=== PATIENT | male | born 1945 | race Caucasian/White ===

== ENCOUNTER 2016-11-12 22:38 | Emergency (ER) | payer MEDICARE, BC, OTHER ==
[~2016-11-12] VITALS: Ht 165.1 cm; Wt 75.0 kg
[~2016-11-12 22:38] MED LIST: ATEN100T7 PO; ATOR20TA PO; GABA100C4 PO; GLIP5 PO; GLUC1000 PO; PRAM.25 PO
[2016-11-12 23:01] VITALS: BP 209/104; PULSE 76; RESP 16; TEMP 97.8; O2SAT 98
--- NOTE | 2016-11-12 23:08 | PD ---
HPI Chief Complaint: Psychiatric Symptoms Time Seen by Provider: 22:53 Travel History International Travel<30 days: No Contact w/Intl Traveler<30days: No Traveled to known affect area: No History of Present Illness HPI This is a 8-year-old gentleman with a history of hypertension, diabetes mellitus , dementia, seizure disorder, who is brought in under a Scales act by the police after he was found wandering outside of his assisted living facility. Patient states he has no complaints at this time other than wanting to find a place to live other than the place she is at now. The patient does state that he has a bad memory and thought he was at [facility]. He is cooperative and noncombative. PFSH Past Medical History Asthma: Yes Blood Disorders: No Heart Rhythm Problems: No Cancer: No Cardiac Catheterization: Yes Cardiovascular Problems: Yes High Cholesterol: Yes Congestive Heart Failure: No COPD: Yes Coronary Artery Disease: Yes Diabetes: Yes Diminished Hearing: No Endocrine: Yes Gastrointestinal Disorders: Yes Genitourinary: No Hypertension: Yes Immune Disorder: No Implanted Vascular Access Dvce: No Insomnia: Yes Musculoskeletal: No Neurologic: Yes (RLS) Parkinson's Disease: Yes Psychiatric: No Reproductive: No Respiratory: Yes Myocardial Infarction: Yes Sleep Apnea: Yes (WEARS O2 AT NIGHT) PNEUMOCCOCAL Vaccine (Year): 1 Past Surgical History Abdominal Surgery: Yes (APPENDECTOMY 1959) Appendectomy: Yes (1959) Cardiac Surgery: Yes Coronary Artery Bypass Graft: Yes ( X 3) Other Surgery: Yes (LYMPH NODE BIOPSY NECK) Social History Alcohol Use: Yes (occ) Tobacco Use: No Substance Use: No Allergies-Medications (Allergen,Severity, Reaction): Coded Allergies: Penicillin (Verified Allergy, Severe, HIVES, 11/12/16) Reported Meds & Prescriptions Reported Meds & Active Scripts Active Reported Super B-Complex (B-Complex W/Biotin & Folic Acid) 1 Cap 1 Cap PO Pramipexole (Pramipexole Dihydrochloride) 1 Mg Tab 1 Mg PO BID Nitrostat SL (Nitroglycerin) 0.4 Mg Subl 0.4 Mg SL DIRECTED PRN 1 tablet under the tongue as needed for chest pain. Repeat every 5 minutes for a total of 3 DOSES or call 911 if NO relief. Metformin (Metformin HCl) 1,000 Mg Tab 1,000 Mg PO BIDPC With meals Lorazepam 1 Mg Tab 1 Mg PO DAILY PRN Levetiracetam 500 Mg Tab 500 Mg PO BID Glipizide 5 Mg Tab 5 Mg PO BIDAC Take 30 minutes before a meal Gabapentin 300 Mg Cap 300 Mg PO BID Donepezil 5 Mg Tab 5 Mg PO HS Plavix (Clopidogrel Bisulfate) 75 Mg Tab 75 Mg PO DAILY Calcium 600 with Vitamin D (Calcium Carbonate-Cholecalciferol) 600-400 mg-Unit Tab 1 Tab PO DAILY Atorvastatin (Atorvastatin Calcium) 40 Mg Tab 40 Mg PO HS Atenolol 100 Mg Tab 100 Mg PO BID Aspirin Low Dose (Aspirin) 81 Mg Chew 81 Mg CHEW DAILY Review of Systems ROS Limitations: Clinical Condition, Altered Mental Status (dementia) Except as stated in HPI: all other systems reviewed are Neg HENT: No: Headaches, Neck Pain Cardiovascular: No: Chest Pain or Discomfort, Palpitations Respiratory: No: Cough, Shortness of Breath Gastrointestinal: No: Nausea, Vomiting, Abdominal Pain Musculoskeletal: No: Weakness, Pain Neurologic: No: Weakness, Headache Psychiatric: No: Suicidal Ideations, Homicidal Ideation Physical Exam Narrative GENERAL: Well-nourished, well-developed patient. SKIN: Focused skin assessment warm/dry. HEAD: Normocephalic/atraumatic. EYES: No scleral icterus. No injection or drainage. NECK: Supple, trachea midline. CARDIOVASCULAR: Regular rate and rhythm without murmurs, gallops, or rubs. RESPIRATORY: Breath sounds equal bilaterally. No accessory muscle use. GASTROINTESTINAL: Abdomen soft, non-tender, nondistended. MUSCULOSKELETAL: No cyanosis, or edema. No deformities noted. NEUROLOGICAL: Awake and confused but answers questions relating to his health. Cranial nerves II through XII intact. Motor grossly within normal limits. Five out of 5 muscle strength in all muscle groups. Normal speech. Data Data Last Documented VS Vital Signs Date Time Temp Pulse Resp B/P Pulse Ox O2 Delivery O2 Flow Rate FiO2 11/12/16 23:05 16 11/12/16 23:01 97.8 76 209/104 98 Orders Complete Blood Count With Diff (11/12/16 23:03) Comprehensive Metabolic Panel (11/12/16 23:03) Psych Screen (11/12/16 23:03) Drug Screen, Random Urine (11/12/16 23:03) Gabapentin (Neurontin) (11/13/16 00:00) Lorazepam (Ativan) (11/13/16 00:00) Labs Laboratory Tests Test 11/12/16 23:25 White Blood Count 6.7 TH/MM3 Red Blood Count 4.17 MIL/MM3 Hemoglobin 13.0 GM/DL Hematocrit 37.6 % Mean Corpuscular Volume 90.3 FL Mean Corpuscular Hemoglobin 31.3 PG Mean Corpuscular Hemoglobin 34.7 % Concent Red Cell Distribution Width 13.9 % Platelet Count 139 TH/MM3 Mean Platelet Volume 9.1 FL Neutrophils (%) (Auto) 66.1 % Lymphocytes (%) (Auto) 22.6 % Monocytes (%) (Auto) 8.8 % Eosinophils (%) (Auto) 2.1 % Basophils (%) (Auto) 0.4 % Neutrophils # (Auto) 4.4 TH/MM3 Lymphocytes # (Auto) 1.5 TH/MM3 Monocytes # (Auto) 0.6 TH/MM3 Eosinophils # (Auto) 0.1 TH/MM3 Basophils # (Auto) 0.0 TH/MM3 CBC Comment DIFF FINAL Differential Comment Sodium Level 143 MEQ/L Potassium Level 4.0 MEQ/L Chloride Level 105 MEQ/L Carbon Dioxide Level 28.5 MEQ/L Anion Gap 10 MEQ/L Blood Urea Nitrogen 14 MG/DL Creatinine 1.02 MG/DL Estimat Glomerular Filtration 72 ML/MIN Rate Random Glucose 152 MG/DL Calcium Level 9.5 MG/DL Total Bilirubin 0.5 MG/DL Aspartate Amino Transf 21 U/L (AST/SGOT) Alanine Aminotransferase 26 U/L (ALT/SGPT) Alkaline Phosphatase 101 U/L Total Protein 7.4 GM/DL Albumin 4.0 GM/DL [facility] Medical Decision Making Medical Screen Exam Complete: Yes Emergency Medical Condition: Yes Medical Record Reviewed: Yes Differential Diagnosis Worsening dementia versus metabolic derangement versus infection Narrative Course 71-year-old history of dementia is brought in after he left his nursing facility. The patient was found wandering about. The patient is a very poor historian. He has obvious dementia and is difficult to get a good clear history. He states he takes nitroglycerin daily. When asked why he does that, he states because he has chest pain daily in its for his angina. When I examined the patient he stated he had no chest pain or chest pressure. There are no other complaints time my examination. The patient is been given one dose of Ativan and gabapentin. He'll be medically cleared for psychiatric admission. Diagnosis Primary Impression: Dementia Additional Impression: medically clear Harish Taylor MD Nov 12, 2016 23:08
[2016-11-12] MEDS ORDERED: ATOR40TA16 PO (23:11)
[2016-11-12] MEDS ORDERED: METF1000 PO (23:11)
[2016-11-12] MEDS ORDERED: ATEN100T PO (23:11)
[2016-11-12] MEDS ORDERED: ASPI81CH37 CHEW (23:11)
[2016-11-12] MEDS ORDERED: B-COCAP9 PO (23:11)
[2016-11-12] MEDS ORDERED: LORA1TAB12 PO (23:11)
[2016-11-12] MEDS ORDERED: LEVE500T8 PO (23:11)
[2016-11-12] MEDS ORDERED: NITR0.4S SL (23:11)
[2016-11-12] MEDS ORDERED: DONE5TAB7 PO (23:11)
[2016-11-12] MEDS ORDERED: GABA300C5 PO (23:11)
[2016-11-12] MEDS ORDERED: GLIP5TAB8 PO (23:11)
[2016-11-12] MEDS ORDERED: PRAM1TAB PO (23:11)
[2016-11-12] MEDS ORDERED: PLAV75TA29 PO (23:11)
[2016-11-12] MEDS ORDERED: CALC1TAB87 PO (23:11)
[2016-11-12 23:37] LABS: AUTOMATED NEUTROPHIL # 4.4 TH/MM3 (1.8-7.7); BASOPHIL % 0.4 % (0.0-2.0); EOSINOPHIL # 0.1 TH/MM3 (0-0.4); EOSINOPHIL % 2.1 % (0.0-4.0); HEMATOCRIT 37.6 % (39.0-51.0); HEMO FLAGS DIFF FINAL; LYMPH % 22.6 % (9.0-44.0); LYMPHOCYTE # 1.5 TH/MM3 (1.0-4.8); MEAN CELL VOLUME 90.3 FL (80.0-100.0); MEAN CORPUSCULAR HEMOGLOBIN 31.3 PG (27.0-34.0); MEAN CORPUSCULAR HGB CONC 34.7 % (32.0-36.0); MONO % 8.8 % (0.0-8.0); NEUT % 66.1 % (16.0-70.0); PLATELET COUNT 139 TH/MM3 (150-450); RED BLOOD COUNT 4.17 MIL/MM3 (4.50-5.90); RED CELL DISTRIBUTION WIDTH 13.9 % (11.6-17.2); WHITE BLOOD COUNT 6.7 TH/MM3 (4.0-11.0)
[2016-11-12 23:59] LABS: ALT (GPT) 26 U/L (12-78); ANION GAP 10 MEQ/L (5-15); AST (GOT) 21 U/L (15-37); BICARBONATE 28.5 MEQ/L (21.0-32.0); BLOOD UREA NITROGEN 14 MG/DL (7-18); CHLORIDE 105 MEQ/L (98-107); GLOMERULAR FILTRATION RATE 72 ML/MIN (>89); SODIUM (NA) 143 MEQ/L (136-145)
[2016-11-13] MEDS ORDERED: LORazepam 1 MG TAB PO ONE
[2016-11-13] MEDS ORDERED: GABAPENTIN 300 MG CAP PO ONE
[2016-11-13 00:01] LABS: ALKALINE PHOSPHATASE 101 U/L (45-117); TOTAL BILIRUBIN ADULT 0.5 MG/DL (0.2-1.0)
[2016-11-13 01:53] VITALS: BP 145/71
[2016-11-13] MEDS: GABAPENTIN 300 MG CAP PO SCH ×2 (09:15→21:19)
[2016-11-13] MEDS: CLOPIDOGREL 75 MG TAB PO SCH (09:15)
[2016-11-13] MEDS: metFORMIN HCL 500 MG TAB PO SCH ×2 (09:15→18:15)
[2016-11-13] MEDS: PRAMIPEXOLE DIHYDROCHLORIDE 1 MG TAB PO SCH ×2 (09:15→21:19)
[2016-11-13] MEDS: ATENOLOL 100 MG TAB PO SCH ×2 (09:15→21:19)
[2016-11-13] MEDS: levETIRAcetam 500 MG TAB PO SCH ×2 (09:15→21:19)
[2016-11-13 11:20] VITALS: BP 156/72; PULSE 80; RESP 18; O2SAT 98
--- NOTE | 2016-11-13 12:28 | PD ---
History of Present Illness Chief Complaint: Psychiatric Symptoms Time Seen by Provider: 11:30 Travel History International Travel<30 Days: No Contact w/Intl Traveler<30days: No Known affected area: No Legal Status Legal Status: Scales Act Scales Act Signed By: Polo Carpio History of Present Illness: History of Present Illness HPI This is a 71 -year-old gentleman with a history of dementia who is brought in under a Scales act by the police after he was found wandering outside of his assisted living facility. As per the report he left the [facility] after he was mandated to stay on campus. He left the facility and began walking home to [place]. Patient states he has no complaints at this time other than wanting to find a place to live other than the place he is at now as he feels that he has not received the care he was expecting to receive. Patient has been monitored in J pod. He has not had any behavioral concerns and has not exhibited any wandering or elopement behaviors. He is alert, oriented. States it is November 19, 2016. Patient engages well with staff and answers questions appropriately. There is no indication that he is experiencing any hallucinations, no delusions and no paranoia. There is no suicidal or homicidal ideation. When asked why he left the [facility] he states " I was not happy with the care I thought I was going to receive. I have some concerns regarding my respiratory status as well as pain in my arm." I ask him what could happen if he were to leave the [facility] and he states " I could get into an accident or have a seizure". T. C to [facility] at [phone] x 2. I spoke with Marichuy. She reports that he has been walking to [facility] during the day. On the day that he was placed under the BA he wanted to leave the facility to go to [facility] at night and became threatening to leave and threw the walker and became belligerent with staff. She states that they are not willing to take him back there as he is an elopement risk. I have advised her that the BA has been lifted and that he is not appropriate for inpatient psychiatry therefore it would be up to them to arrange for a transfer to another facility. She states that she will get back to me later in the afternoon. In the meantime I spoke with Mr. Torres and advised him that [facility] would not accept him and that I was informed by Marichuy that he had refused another placement offered to him because it entailed that he would have to share a room with someone. Patient had declined this offer as per Marichuy. At this time the patient is accepting to go back to [facility] or to the other facility. I called Marichuy but she was not available. message left with punchboard inserter. I received a call from Marichuy at 1600 hours. States she never received a c message from her punchboard inserter and then later states that she had called the wrong number. I advised her that the patient has been cleared for discharge. She informs me she will call [facility] to arrange for a transfer to that facility. Once again I have advised her that the BA has been lifted . PFSH Past Medical History Asthma: Yes Blood Disorders: No Heart Rhythm Problems: No Cancer: No Cardiac Catheterization: Yes Cardiovascular Problems: Yes High Cholesterol: Yes Congestive Heart Failure: No COPD: Yes Coronary Artery Disease: Yes Diabetes: Yes Patient Takes Glucophage: No Diminished Hearing: No Endocrine: Yes Gastrointestinal Disorders: Yes Genitourinary: No Hypertension: Yes Immune Disorder: No Implanted Vascular Access Dvce: No Insomnia: Yes Musculoskeletal: No Neurologic: Yes (RLS) Parkinson's Disease: Yes Psychiatric: No Reproductive: No Respiratory: Yes Myocardial Infarction: Yes Sleep Apnea: Yes (WEARS O2 AT NIGHT) Tetanus Vaccination: Unknown Influenza Vaccination: Yes PNEUMOCCOCAL Vaccine (Year): 1 Past Surgical History Abdominal Surgery: Yes (APPENDECTOMY 1959) Appendectomy: Yes (1959) Cardiac Surgery: Yes Coronary Artery Bypass Graft: Yes ( X 3) Other Surgery: Yes (LYMPH NODE BIOPSY NECK) Psychiatric History Psychiatric History Hx Psychiatric Treatment: PATIENT REPORTS THAT HE IS UNSURE OF HIS PSYCHIATRIC HISTORY. NONE NOTED PER PAPERWORK PROVIDED BY [facility]. History of Inpatient Treatment: No Guns or firearms in home: No Social History Born in [place]. x 3. Currently x 12 years. 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 Hx Alcohol Use: Yes (occ) Hx Tobacco Use: No Hx Substance Use: No Hx of Substance Use Treatment: No Allergies-Medications (Allergen,Severity, Reaction): Coded Allergies: Penicillin (Verified Allergy, Severe, HIVES, 11/12/16) Reported Meds & Prescriptions Reported Meds & Active Scripts Active Reported Super B-Complex (B-Complex W/Biotin & Folic Acid) 1 Cap 1 Cap PO Pramipexole (Pramipexole Dihydrochloride) 1 Mg Tab 1 Mg PO BID Nitrostat SL (Nitroglycerin) 0.4 Mg Subl 0.4 Mg SL DIRECTED PRN 1 tablet under the tongue as needed for chest pain. Repeat every 5 minutes for a total of 3 DOSES or call 911 if NO relief. Metformin (Metformin HCl) 1,000 Mg Tab 1,000 Mg PO BIDPC With meals Lorazepam 1 Mg Tab 1 Mg PO DAILY PRN Levetiracetam 500 Mg Tab 500 Mg PO BID Glipizide 5 Mg Tab 5 Mg PO BIDAC Take 30 minutes before a meal Gabapentin 300 Mg Cap 300 Mg PO BID Donepezil 5 Mg Tab 5 Mg PO HS Plavix (Clopidogrel Bisulfate) 75 Mg Tab 75 Mg PO DAILY Calcium 600 with Vitamin D (Calcium Carbonate-Cholecalciferol) 600-400 mg-Unit Tab 1 Tab PO DAILY Atorvastatin (Atorvastatin Calcium) 40 Mg Tab 40 Mg PO HS Atenolol 100 Mg Tab 100 Mg PO BID Aspirin Low Dose (Aspirin) 81 Mg Chew 81 Mg CHEW DAILY Review of Systems Constitutional: DENIES: Diaphoretic episodes, Fatigue, Fever, Weight gain, Weight loss, Chills, Dizziness, Change in appetite, Night Sweats Endocrine: DENIES: Heat/cold intolerance, Polydipsia, Polyuria, Polyphagia Eyes: COMPLAINS OF: Vision loss Ears, nose, mouth, throat: DENIES: Tinnitus, Hearing loss, Vertigo, Nasal discharge, Oral lesions, Throat pain, Hoarseness, Ear Pain, Running Nose, Epistaxis, Sinus Pain, Toothache, Odynophagia Respiratory: COMPLAINS OF: Shortness of breath Cardiovascular: DENIES: Chest pain, Palpitations, Syncope, Dyspnea on Exertion , PND, Lower Extremity Edema, Orthopnea, Claudication Gastrointestinal: DENIES: Abdominal pain, Black stools, Bloody stools, Constipation, Diarrhea, Nausea, Vomiting, Difficulty Swallowing, Anorexia Genitourinary: DENIES: Sexual dysfunction, Urinary frequency, Urinary incontinence, Urgency, Hematuria, Dysuria, Nocturia, Penile Discharge, Testicular Pain, Testicular Swelling Musculoskeletal: COMPLAINS OF: Muscle aches Integumentary: DENIES: Abnormal pigmentation, Nail changes, Pruritus, Rash Hematologic/lymphatic: DENIES: Bruising, Lymphadenopathy Immunologic/allergic: DENIES: Eczema, Urticaria Neurologic: DENIES: Abnormal gait, Headache, Localized weakness, Paresthesias, Seizures, Speech Problems, Tremor, Poor Balance Exam Alert: Yes Webb: Person (yes), Place (yes), Date (November 19, 2016) Mood: Calm Affect: Appropriate Speech: Clear, Logical Eye Contact: Normal Memory Intact: Comment (minor memory impairmetn) Hallucinations: Other (negative) Delusions: No Suicidal: Ideation (deneis any) Homicidal: Ideation (deneis any) Insight/Judgement Fair. Not impaired. MDM Medical Decision Making Medical Record Reviewed: Yes Assessment/Plan 71 year old male with history of dementia who is under a BA after he alledgedly walked out of his [facility]. At this time this patient does not present any criteria to be retained here under a BA. I have called the [facility] and they are refusing to accept him back at their facility. I have advised them that this patient does not meet criteria to remain here. Orders Complete Blood Count With Diff (11/12/16 23:03) Comprehensive Metabolic Panel (11/12/16 23:03) Psych Screen (11/12/16 23:03) Drug Screen, Random Urine (11/12/16 23:03) Gabapentin (Neurontin) (11/13/16 00:00) Lorazepam (Ativan) (11/13/16 00:00) Diet Diabetic (11/13/16 Breakfast) Atenolol (Tenormin) (11/13/16 09:00) Clopidogrel (Plavix) (11/13/16 09:00) Gabapentin (Neurontin) (11/13/16 09:00) Levetiracetam (Keppra) (11/13/16 09:00) Metformin (Glucophage) (11/13/16 09:00) Pramipexole (Mirapex) (11/13/16 09:00) Diet 1800 Ada Cons Carb (11/13/16 Lunch) Results Vital Signs Date Time Temp Pulse Resp B/P Pulse Ox O2 Delivery O2 Flow Rate FiO2 11/13/16 11:20 80 18 156/72 98 Room Air 11/13/16 01:53 85 16 145/71 97 11/12/16 23:05 16 11/12/16 23:01 97.8 76 16 209/104 98 Laboratory Tests Test 11/12/16 23:25 White Blood Count 6.7 Red Blood Count 4.17 Hemoglobin 13.0 Hematocrit 37.6 Mean Corpuscular Volume 90.3 Mean Corpuscular Hemoglobin 31.3 Mean Corpuscular Hemoglobin 34.7 Concent Red Cell Distribution Width 13.9 Platelet Count 139 Mean Platelet Volume 9.1 Neutrophils (%) (Auto) 66.1 Lymphocytes (%) (Auto) 22.6 Monocytes (%) (Auto) 8.8 Eosinophils (%) (Auto) 2.1 Basophils (%) (Auto) 0.4 Neutrophils # (Auto) 4.4 Lymphocytes # (Auto) 1.5 Monocytes # (Auto) 0.6 Eosinophils # (Auto) 0.1 Basophils # (Auto) 0.0 CBC Comment DIFF FINAL Differential Comment Sodium Level 143 Potassium Level 4.0 Chloride Level 105 Carbon Dioxide Level 28.5 Anion Gap 10 Blood Urea Nitrogen 14 Creatinine 1.02 Estimat Glomerular Filtration 72 Rate Random Glucose 152 Calcium Level 9.5 Total Bilirubin 0.5 Aspartate Amino Transf 21 (AST/SGOT) Alanine Aminotransferase 26 (ALT/SGPT) Alkaline Phosphatase 101 Total Protein 7.4 Albumin 4.0 Diagnosis Primary Impression: Dementia Additional Impression: medically clear Psychiatrically Cleared: Yes Problem Qualifiers Primary Impression: Dementia Qualified Code: F03.90 - Dementia without behavioral disturbance, unspecified dementia type Nelly Ivy Nov 13, 2016 12:28
[2016-11-13 15:23] VITALS: BP 172/80; PULSE 77; RESP 19; TEMP 96.9; O2SAT 100
[2016-11-13 18:58] VITALS: BP 141/65; PULSE 74; RESP 18; TEMP 97.2; O2SAT 99
[2016-11-13 22:11] VITALS: BP 163/70; PULSE 78; RESP 19; O2SAT 95
[2016-11-14 06:34] VITALS: BP 170/74; PULSE 72; RESP 17; O2SAT 97
[2016-11-14] MEDS: GABAPENTIN 300 MG CAP PO SCH (09:10)
[2016-11-14] MEDS: PRAMIPEXOLE DIHYDROCHLORIDE 1 MG TAB PO SCH (09:10)
[2016-11-14] MEDS: levETIRAcetam 500 MG TAB PO SCH (09:10)
[2016-11-14] MEDS: CLOPIDOGREL 75 MG TAB PO SCH (09:10)
[2016-11-14] MEDS: metFORMIN HCL 500 MG TAB PO SCH (09:10)
[2016-11-14] MEDS: ATENOLOL 100 MG TAB PO SCH (09:12)
[2016-11-14 12:00] VITALS: BP 163/69; PULSE 72; RESP 16; O2SAT 100
[2016-11-14 14:30] VITALS: BP 130/58; PULSE 70; RESP 16; TEMP 98; O2SAT 100
== END 2016-11-14 17:35 | disposition home or self-care (01) ==
LOC: NEPE 22:38 → NEPJ 11-14 17:35
DX: F03.90 Unspecified dementia, unspecified severity, without behavioral disturbance, psychotic disturbance, mood disturbance, and anxiety (principal); I10 Essential (primary) hypertension; E11.9 Type 2 diabetes mellitus without complications; J45.909 Unspecified asthma, uncomplicated; E78.00 Pure hypercholesterolemia, unspecified; J44.9 Chronic obstructive pulmonary disease, unspecified; I25.10 Atherosclerotic heart disease of native coronary artery without angina pectoris; G20 Parkinson's disease; I25.2 Old myocardial infarction
CPT/HCPCS: 80053; 85025; 99284

== ENCOUNTER 2016-12-18 19:07 | Emergency (ER) | payer MEDICARE, BC, OTHER ==
[~2016-12-18] VITALS: Ht 182.9 cm; Wt 85.0 kg
[~2016-12-18 19:07] MED LIST changes: +ASPI81CH37 CHEW; +ATEN100T PO; -ATEN100T7 PO; -ATOR20TA PO; +ATOR40TA16 PO; +B-COCAP9 PO; +CALC1TAB87 PO; +DONE5TAB7 PO; -GABA100C4 PO; +GABA300C5 PO; -GLIP5 PO; +GLIP5TAB8 PO; -GLUC1000 PO; +LEVE500T8 PO; +LORA1TAB12 PO; +METF1000 PO; +NITR0.4S SL; +PLAV75TA29 PO; -PRAM.25 PO; +PRAM1TAB PO
[2016-12-18 19:13] VITALS: BP 144/68; PULSE 75; RESP 18; TEMP 98.2; O2SAT 99
[2016-12-18] MEDS ORDERED: ACETAMINOPHEN 325 MG TAB PO ONE (21:15)
--- NOTE | 2016-12-18 21:29 | PD ---
HPI Chief Complaint: Headache Time Seen by Provider: 21:25 Travel History International Travel<30 days: No Contact w/Intl Traveler<30days: No Traveled to known affect area: No History of Present Illness HPI 71-year-old male that presents to the ED for evaluation of headache. Patient has a chronic history of dementia, diabetes, high cholesterol as well as hypertension. Per patient today will at a democrat he had a severe headache with some dizziness. Per patient he doesn't her having a headache like this before. Per patient headache was severe. He did not take anything for this. He called the ambulance and brought him here. Patient lives at a [facility] facility and has a history of dementia. Patient states that his pain is on the mid head and is pounding. Patient denies any blurry vision or double vision. No numbness, tingling, weakness. No chest pain. No shortness of breath. No nausea or vomiting. History migraine headaches. History of surgeries to the head. He does take Plavix. Denies any traumas. Pain per patient currently is 10 out of 10. He however does not seem to be in a lot of discomfort. PFSH Past Medical History Asthma: Yes Blood Disorders: No Heart Rhythm Problems: No Cancer: No Cardiac Catheterization: Yes Cardiovascular Problems: Yes High Cholesterol: Yes Congestive Heart Failure: No COPD: Yes Coronary Artery Disease: Yes Diabetes: Yes Diminished Hearing: No Endocrine: Yes Gastrointestinal Disorders: Yes Genitourinary: No Hypertension: Yes Immune Disorder: No Implanted Vascular Access Dvce: No Insomnia: Yes Musculoskeletal: No Neurologic: Yes (RLS) Parkinson's Disease: Yes Psychiatric: No Reproductive: No Respiratory: Yes Myocardial Infarction: Yes Sleep Apnea: Yes (WEARS O2 AT NIGHT) PNEUMOCCOCAL Vaccine (Year): 1 Past Surgical History Abdominal Surgery: Yes (APPENDECTOMY 1959) Appendectomy: Yes (1959) Cardiac Surgery: Yes Coronary Artery Bypass Graft: Yes ( X 3) Other Surgery: Yes (LYMPH NODE BIOPSY NECK) Social History Alcohol Use: Yes (occ) Tobacco Use: No Substance Use: No Allergies-Medications (Allergen,Severity, Reaction): Coded Allergies: Penicillin (Verified Allergy, Severe, HIVES, 12/18/16) Reported Meds & Prescriptions Reported Meds & Active Scripts Active Reported Super B-Complex (B-Complex W/Biotin & Folic Acid) 1 Cap 1 Cap PO Pramipexole (Pramipexole Dihydrochloride) 1 Mg Tab 1 Mg PO BID Nitrostat SL (Nitroglycerin) 0.4 Mg Subl 0.4 Mg SL DIRECTED PRN 1 tablet under the tongue as needed for chest pain. Repeat every 5 minutes for a total of 3 DOSES or call 911 if NO relief. Metformin (Metformin HCl) 1,000 Mg Tab 1,000 Mg PO BIDPC With meals Lorazepam 1 Mg Tab 1 Mg PO DAILY PRN Levetiracetam 500 Mg Tab 500 Mg PO BID Glipizide 5 Mg Tab 5 Mg PO BIDAC Take 30 minutes before a meal Gabapentin 300 Mg Cap 300 Mg PO BID Donepezil 5 Mg Tab 5 Mg PO HS Plavix (Clopidogrel Bisulfate) 75 Mg Tab 75 Mg PO DAILY Calcium 600 with Vitamin D (Calcium Carbonate-Cholecalciferol) 600-400 mg-Unit Tab 1 Tab PO DAILY Atorvastatin (Atorvastatin Calcium) 40 Mg Tab 40 Mg PO HS Atenolol 100 Mg Tab 100 Mg PO BID Aspirin Low Dose (Aspirin) 81 Mg Chew 81 Mg CHEW DAILY Review of Systems Except as stated in HPI: all other systems reviewed are Neg Physical Exam Narrative GENERAL: SKIN: Warm and dry. HEAD: Atraumatic. Normocephalic. EYES: Pupils equal and round 4 mm reactive to light and accommodation. No scleral icterus. No injection or drainage. ENT: No nasal bleeding or discharge. Mucous membranes pink and moist. Tongue is midline. No uvula deviation. NECK: Trachea midline. No JVD. CARDIOVASCULAR: Regular rate and rhythm. No murmurs, S3, S4. RESPIRATORY: No accessory muscle use. Clear to auscultation. Breath sounds equal bilaterally. GASTROINTESTINAL: Abdomen soft, non-tender, nondistended. Hepatic and splenic margins not palpable. MUSCULOSKELETAL: Extremities without clubbing, cyanosis, or edema. No obvious deformities. Full range of motion of the upper and lower extremities bilaterally. 2+ pulses bilaterally. No cervical, thoracic, lumbar spine tenderness to palpation. NEUROLOGICAL: Awake and alert. No obvious cranial nerve deficits. Motor grossly within normal limits. Five out of 5 muscle strength in the arms and legs. Normal speech. Romberg test negative. Pronator test negative. PSYCHIATRIC: Appropriate mood and affect; insight and judgment normal. Data Data Last Documented VS Vital Signs Date Time Temp Pulse Resp B/P Pulse Ox O2 Delivery O2 Flow Rate FiO2 12/18/16 19:13 98.2 75 18 144/68 99 Orders Complete Blood Count With Diff (12/18/16 21:05) Comprehensive Metabolic Panel (12/18/16 21:05) Urinalysis - C+S If Indicated (12/18/16 21:05) Ct Brain W/O Iv Contrast(Rout) (12/18/16 ) Prothrombin Time / Inr (Pt) (12/18/16 21:15) Act Partial Throm Time (Ptt) (12/18/16 21:15) Acetaminophen (Tylenol) (12/18/16 21:15) MDM Medical Decision Making Medical Screen Exam Complete: Yes Emergency Medical Condition: Yes Medical Record Reviewed: Yes Differential Diagnosis Migraine headache versus ICH versus head injury versus head bleed versus cephalgia versus tension headache Narrative Course 71-year-old male that presents today for evaluation of headache. Patient was properly examined and was found to have signs and symptoms consistent with headache. Unclear etiology. He does have a history of dementia so his history is slightly limited. He does appear to answer questions properly. He states that his headache is severe although he does not appear to be in any distress whatsoever. His vitals are reassuring. Because of these patient is, but it is a do recommend workup however. Patient was given Tylenol for his pain. Labs and imaging were ordered. Case will be signed out to incoming provider pending disposition and treatment plan. Benjamin Wilson December 18, 2016 21:29
[2016-12-18 21:37] LABS: AUTOMATED NEUTROPHIL # 4.6 TH/MM3 (1.8-7.7); BASOPHIL % 0.3 % (0.0-2.0); EOSINOPHIL # 0.1 TH/MM3 (0-0.4); EOSINOPHIL % 2.1 % (0.0-4.0); HEMO FLAGS DIFF FINAL; LYMPH % 23.5 % (9.0-44.0); LYMPHOCYTE # 1.6 TH/MM3 (1.0-4.8); MEAN CELL VOLUME 88.4 FL (80.0-100.0); MEAN CORPUSCULAR HEMOGLOBIN 30.1 PG (27.0-34.0); MEAN CORPUSCULAR HGB CONC 34.1 % (32.0-36.0); MONO % 7.8 % (0.0-8.0); NEUT % 66.3 % (16.0-70.0); PLATELET COUNT 139 TH/MM3 (150-450); RED BLOOD COUNT 3.96 MIL/MM3 (4.50-5.90); RED CELL DISTRIBUTION WIDTH 13.4 % (11.6-17.2); WHITE BLOOD COUNT 6.9 TH/MM3 (4.0-11.0)
[2016-12-18 21:48] VITALS: BP 142/69; PULSE 75; RESP 18; O2SAT 98
[2016-12-18 21:51] LABS: ALT (GPT) 29 U/L (12-78); ANION GAP 6 MEQ/L (5-15); AST (GOT) 26 U/L (15-37); BICARBONATE 30.8 MEQ/L (21.0-32.0); BLOOD UREA NITROGEN 21 MG/DL (7-18); CHLORIDE 105 MEQ/L (98-107); GLOMERULAR FILTRATION RATE 63 ML/MIN (>89); POTASSIUM 3.6 MEQ/L (3.5-5.1); SODIUM (NA) 142 MEQ/L (136-145)
[2016-12-18 21:55] LABS: ALKALINE PHOSPHATASE 111 U/L (45-117); TOTAL BILIRUBIN ADULT 0.5 MG/DL (0.2-1.0)
[2016-12-18] MEDS ORDERED: ESCI10TA PO (21:57)
[2016-12-18 21:58] LABS: APTT (PATIENT) 26.8 SEC (24.3-30.1); INTERNATIONAL NORMALIZED RATIO 1.1 RATIO; PROTHROMBIN TIME - PATIENT 12.7 SEC (9.8-11.6)
--- NOTE | 2016-12-18 22:29 | RADRPT ---
EXAM DATE/TIME: 12/18/2016 21:53 [facility] COMPARISON: No previous studies available for comparison. INDICATIONS : Cephalgia. RADIATION DOSE: 47.85 CTDIvol (mGy) MEDICAL HISTORY : Cerebrovascular disease. Parkinsons. Hypertension.Diabetes. SURGICAL HISTORY : CABG ENCOUNTER: Initial ACUITY: 1 day PAIN SCALE: 10/10 LOCATION: cranial TECHNIQUE: Multiple contiguous axial images were obtained of the head. Using automated exposure control and adj ustment of the mA and/or kV according to patient size, radiation dose was kept as low as reasonably a chievable to obtain optimal diagnostic quality images. FINDINGS: There is a remote infarct in the right parietal lobe with a slight increase in encephalomalacia since March 2012. Tentorial calcifications are noted, stable. No acute hemorrhage, mass or shift. No new infarct identified. 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 No acute findings. Alexander Spencer MD on December 18, 2016 at 22:24 Board Certified Radiologist. This report was verified electronically.
--- NOTE | 2016-12-18 22:47 | PD ---
Data Data Last Documented VS Vital Signs Date Time Temp Pulse Resp B/P Pulse Ox O2 Delivery O2 Flow Rate FiO2 12/18/16 22:51 16 12/18/16 21:48 75 142/69 98 Room Air 12/18/16 19:13 98.2 Orders Complete Blood Count With Diff (12/18/16 21:05) Comprehensive Metabolic Panel (12/18/16 21:05) Urinalysis - C+S If Indicated (12/18/16 21:05) Ct Brain W/O Iv Contrast(Rout) (12/18/16 ) Prothrombin Time / Inr (Pt) (12/18/16 21:15) Act Partial Throm Time (Ptt) (12/18/16 21:15) Acetaminophen (Tylenol) (12/18/16 21:15) Lorazepam (Ativan) (12/19/16 02:30) Haloperidol Inj (Haldol Inj) (12/19/16 02:30) Labs Laboratory Tests Test 12/18/16 21:20 White Blood Count 6.9 TH/MM3 Red Blood Count 3.96 MIL/MM3 Hemoglobin 11.9 GM/DL Hematocrit 35.0 % Mean Corpuscular Volume 88.4 FL Mean Corpuscular Hemoglobin 30.1 PG Mean Corpuscular Hemoglobin 34.1 % Concent Red Cell Distribution Width 13.4 % Platelet Count 139 TH/MM3 Mean Platelet Volume 9.4 FL Neutrophils (%) (Auto) 66.3 % Lymphocytes (%) (Auto) 23.5 % Monocytes (%) (Auto) 7.8 % Eosinophils (%) (Auto) 2.1 % Basophils (%) (Auto) 0.3 % Neutrophils # (Auto) 4.6 TH/MM3 Lymphocytes # (Auto) 1.6 TH/MM3 Monocytes # (Auto) 0.5 TH/MM3 Eosinophils # (Auto) 0.1 TH/MM3 Basophils # (Auto) 0.0 TH/MM3 CBC Comment DIFF FINAL Differential Comment Prothrombin Time 12.7 SEC Prothromb Time International 1.1 RATIO Ratio Activated Partial 26.8 SEC Thromboplast Time Sodium Level 142 MEQ/L Potassium Level 3.6 MEQ/L Chloride Level 105 MEQ/L Carbon Dioxide Level 30.8 MEQ/L Anion Gap 6 MEQ/L Blood Urea Nitrogen 21 MG/DL Creatinine 1.15 MG/DL Estimat Glomerular Filtration 63 ML/MIN Rate Random Glucose 107 MG/DL Calcium Level 8.3 MG/DL Total Bilirubin 0.5 MG/DL Aspartate Amino Transf 26 U/L (AST/SGOT) Alanine Aminotransferase 29 U/L (ALT/SGPT) Alkaline Phosphatase 111 U/L Total Protein 6.6 GM/DL Albumin 3.5 GM/DL [facility] Supervised Visit with ROSHAN: Yes Narrative Course Patient care assumed from Benjamin Wlison PA-C after he was roomed in the [facility] pod from the ambulance all. Patient is a 71-year-old male presents from assisted living facility with complaints of a headache which she states is now resolved. He states he would like to go home. In a moment of clarity he is alert and awake and oriented. He understands the indications behind his current headache. I discussed with him the CT of the head is negative and there is no bleeding in his head. Discussed this is fairly reliable given his time frame. He was offered a lumbar puncture and after the risks benefits competitions and alternatives were discussed with the patient and he verbalized understanding to those risks and benefits as well as the risks of missing an undiagnosed subarachnoid hemorrhage he declined lumbar puncture. Patient was also asking several questions about what the next step would be if he had a lumbar puncture that was positive and he and I had a full conversation about neurosurgical intervention including intravascular procedure which she had several questions about as well. He seems to have quite an understanding of his current condition. Furthermore my index of suspicion for a subarachnoid hemorrhage is extremely low. Patient would like to go home and I think he is fit for discharge at this time. 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 He continued to wander the hallway and became increasingly agitated. He does have Ativan on his medication reconciliation form and I had recommended that he have a dose and he declined. After some conversation with him he was redirected into the stretcher and I have convinced him to have some Haldol and he is accepting. The patient didn't NOT have to be physically restrained. After the Haldol was given the patient calmed down significantly and return to his near lucid state and was apologetic. He ultimately agreed to have his nighttime Ativan as well. He remains medically stable. His headache has resolved and is neurologically intact. He is awaiting for a ride home. Diagnosis Primary Impression: Headache Qualified Code: R51 - Nonintractable headache, unspecified chronicity pattern , unspecified headache type Disposition: 03 DISCHARGE TO SNF Condition: Claudio Martínez MD December 18, 2016 22:47
[2016-12-18 22:51] VITALS: RESP 16
[2016-12-19] MEDS: LORazepam 1 MG TAB PO ONE ×2 (02:26→03:04)
[2016-12-19] MEDS ORDERED: HALOPERIDOL LACTATE 5 MG/ML AMP IM ONE (02:30)
== END 2016-12-19 09:01 ==
LOC: NEPC 19:07 → NEPD 12-19 09:01
DX: R51 Headache (principal); R42 Dizziness and giddiness; F03.90 Unspecified dementia, unspecified severity, without behavioral disturbance, psychotic disturbance, mood disturbance, and anxiety; E11.9 Type 2 diabetes mellitus without complications; E78.00 Pure hypercholesterolemia, unspecified; I10 Essential (primary) hypertension; J45.909 Unspecified asthma, uncomplicated; J44.9 Chronic obstructive pulmonary disease, unspecified; I25.10 Atherosclerotic heart disease of native coronary artery without angina pectoris; G20 Parkinson's disease; I25.2 Old myocardial infarction; G47.30 Sleep apnea, unspecified; Z95.1 Presence of aortocoronary bypass graft; Z79.01 Long term (current) use of anticoagulants
CPT/HCPCS: 70450; 80053; 85025; 85610; 85730; 96372; 99284; J1630